=== PATIENT | female | born 1945 | race Caucasian/White ===

== ENCOUNTER → 2018-03-31 | Outpatient (CLI) | payer OTHER ==
[~2018-03-31] MED LIST: REGADENOSON 0.4 MG/5 ML SYR IV ONE
--- NOTE | 2018-04-03 14:32 | Cardiology Report ---
DATE OF STUDY: March 31, 2018 LEXISCAN STRESS TEST INDICATION: Chest pain. DESCRIPTION OF PROCEDURE: After informed consent, patient was brought to the stress lab. She was given 10.5 mCi of technetium 99 Myoview, and myocardial perfusion SPECT images were obtained in the horizontal long axis, short axis and vertical long axis views. Subsequently, patient was given 0.4 mg Lexiscan over 10 seconds. Patient was given 33.__ mCi of technetium 99 Myoview, and myocardial perfusion SPECT images were obtained in the horizontal long axis, short axis and vertical long axis views. Gating images were also obtained. Patient tolerated the procedure without any complications. REPORT: Baseline EKG shows sinus rhythm at 60 beats per minute, normal axis, normal intervals, nonspecific ST-T changes. PARAMETERS: 1. Resting heart rate is 59 beats per minute. 2. Maximum heart rate is 96 beats per minute. 3. Resting blood pressure 146/78 mmHg. 4. Maximum blood pressure 153/69 mmHg. REASON FOR TERMINATION: Endpoint attained. INTERPRETATION: 1. Negative chest pain. 2. Negative for arrhythmias. 3. Blood pressure response consistent with Lexiscan. 4. No significant ST-T changes seen during Lexiscan infusion compared to baseline. 5. Analysis of SPECT images reveals uniform radioisotope uptake in all segments of the myocardium without any significant perfusion defect. CONCLUSION: 1. No evidence significant ischemia or infarction on this study. 2. No wall motion abnormalities. 3. Overall ejection fraction is 67%. Job#: [id number]
== END ==
LOC: NM 03-25 07:54
DX: R94.31 Abnormal electrocardiogram [ECG] [EKG] (principal); R07.9 Chest pain, unspecified
CPT/HCPCS: 78452; 93017; A9502

== ENCOUNTER 2024-06-20 21:20 | Emergency (ER) | payer MEDICARE ==
[~2024-06-20] VITALS: Ht 144.8 cm; Wt 61.2 kg
[~2024-06-20 21:20] MED LIST changes: +MEDROL4 M2 PO; -REGADENOSON 0.4 MG/5 ML SYR IV ONE
[2024-06-20 22:09] VITALS: PULSE 73; RESP 16; TEMP 97.7; O2SAT 99
[2024-06-20] MEDS ORDERED: ULTRAM 50MG50 MG PO (22:30)
== END 2024-06-20 22:32 | disposition home or self-care (01) ==
LOC: ER 21:23
DX: S60.222A Contusion of left hand, initial encounter (principal); W20.8XXA Other cause of strike by thrown, projected or falling object, initial encounter; Y92.89 Other specified places as the place of occurrence of the external cause; E03.9 Hypothyroidism, unspecified; M81.0 Age-related osteoporosis without current pathological fracture
CPT/HCPCS: 99283